=== PATIENT | female | born 1970 | race Caucasian/White ===

== ENCOUNTER 2020-04-01 08:13 | Emergency (ER) | payer MEDICAID ==
[~2020-04-01] VITALS: Ht 154.9 cm; Wt 52.0 kg
[2020-04-01 10:11] VITALS: BP 145/77
== END 2020-04-01 10:13 | disposition home or self-care (01) ==
LOC: ER 08:13
DX: L03.211 Cellulitis of face (principal); R00.2 Palpitations; R06.02 Shortness of breath
CPT/HCPCS: 93005; 99283

== ENCOUNTER 2020-04-01 13:12 | Outpatient (CLI) | payer MEDICAID | END 2020-04-01 23:59 | disposition home or self-care (01) | LOC: CARD DIAG 13:12 | DX: R00.2 Palpitations (principal) | CPT/HCPCS: 93306 ==

== ENCOUNTER 2020-04-11 18:48 | Emergency (ER) | payer MEDICAID ==
[~2020-04-11] VITALS: Ht 154.9 cm; Wt 53.6 kg
[2020-04-11 20:17] VITALS: BP 128/79
== END 2020-04-11 20:18 | disposition home or self-care (01) ==
LOC: ER 18:49
DX: R42 Dizziness and giddiness (principal); G62.9 Polyneuropathy, unspecified
CPT/HCPCS: 93005; 99283

== ENCOUNTER 2020-05-10 07:57 | Outpatient (CLI) | payer MEDICAID | END 2020-05-10 23:59 | disposition home or self-care (01) | LOC: RAD 07:57 | PROVIDERS: ATTEND Family Medicine | DX: R42 Dizziness and giddiness (principal) | CPT/HCPCS: 95816 ==

== ENCOUNTER 2023-05-15 18:40 | Emergency (ER) | payer MEDICAID ==
[~2023-05-15] VITALS: Ht 154.9 cm; Wt 60.0 kg
[2023-05-15] MEDS ORDERED: normal saline 1000ML IV soln IVB ONE ×2 (19:15→19:20)
[2023-05-15 19:18] VITALS: BP 141/82; PULSE 90; RESP 12; TEMP 98.5; O2SAT 100
[2023-05-15] MEDS ORDERED: meclizine 12.5mg tablet PO ONE (19:20)
[2023-05-15] MEDS ORDERED: ondansetron/PF 4mg/2ml inj IV ONE (19:20)
[2023-05-15 19:31] LABS: BASOPHILS % (AUTO) 0.3 % (0-1); EOSINOPHILS # (AUTO) 0.1 X10'3 (0-0.9); EOSINOPHILS % (AUTO) 1.9 % (0-6); HEMATOCRIT 37.2 % (35.0-45.0); HEMOGLOBIN 12.6 g/dl (12.0-16.0); LYMPHOCYTES # (AUTO) 1.1 X10'3 (1.1-4.8); MEAN CORPUSCULAR HEMOGLOBIN 31.4 PG (27.0-31.0); MEAN CORPUSCULAR HGB CONC 33.8 g/dL (33.0-36.5); MEAN CORPUSCULAR VOLUME 92.9 FL (78-98); MEAN PLATELET VOLUME 7.3 FL (7.4-10.4); MONOCYTES # (AUTO) 0.5 X10'3 (0-0.9); MONOCYTES % (AUTO) 9.9 % (2-12); NEUTROPHILS # (AUTO) 3.2 X10'3 (1.8-7.7); NEUTROPHILS % (AUTO) 65.9 % (42-75); PLATELET COUNT 248 X10'3 (140-440); RED BLOOD COUNT 4.01 X10'6 (4.20-5.60); RED CELL DISTRIBUTION WIDTH 14.4 % (11.5-14.5); WHITE BLOOD COUNT 4.8 X10'3 (4.5-11.0)
[2023-05-15 19:46] LABS: ALANINE AMINOTRANSFERASE 18 U/L (12-78); ALBUMIN 3.6 G/DL (3.4-5.0); ALBUMIN/GLOBULIN RATIO 1.2 (1.1-1.5); ALKALINE PHOSPHATASE 45 IU/L (46-116); ANION GAP 10 (8-16); ASPARTATE AMINO TRANSFERASE 10 U/L (10-37); BILIRUBIN,TOTAL 0.2 MG/DL (0.1-1.0); BLOOD UREA NITROGEN 13 MG/DL (7-18); BUN/CREATININE RATIO 18.8 (10.0-20.0); CALCIUM 8.2 MG/DL (8.5-10.1); CHLORIDE 106 MMOL/L (99-107); CREATININE 0.69 MG/DL (0.40-0.90); GLUCOSE 138 MG/DL (70-104); POTASSIUM 3.9 MMOL/L (3.5-5.1); SODIUM 139 MMOL/L (135-145); TOTAL CARBON DIOXIDE 23.2 MMOL/L (24-32); TOTAL PROTEIN 6.6 G/DL (6.4-8.2); eCRCL 71 ML/MIN; eGFR 89 ML/MIN
[2023-05-15 19:53] LABS: PRO BRAIN NATRIURETIC PEPTIDE 44 PG/ML (0-125)
[2023-05-15] MEDS ORDERED: MECL-302 PO (20:35)
[2023-05-15] MEDS ORDERED: ONDA4TAB12 PO (20:35)
== END 2023-05-15 22:18 | disposition home or self-care (01) ==
LOC: ER 18:40
DX: R42 Dizziness and giddiness (principal); H53.8 Other visual disturbances; G43.909 Migraine, unspecified, not intractable, without status migrainosus; I05.0 Rheumatic mitral stenosis; Z79.899 Other long term (current) drug therapy
CPT/HCPCS: 36415; 71045; 80053; 83880; 84484; 85025; 93005; 96360; 96361; 99285; J7030; J8597

== ENCOUNTER 2023-05-23 16:52 | Emergency (ER) | payer MEDICAID ==
[~2023-05-23] VITALS: Ht 154.9 cm; Wt 59.1 kg
[~2023-05-23 16:52] MED LIST: MECL-302 PO; ONDA4TAB12 PO
[2023-05-23 17:04] VITALS: BP 135/87; PULSE 105; RESP 18; TEMP 97.8; O2SAT 98
== END 2023-05-23 18:52 | disposition left against medical advice (07) ==
LOC: ER 16:53
DX: G43.909 Migraine, unspecified, not intractable, without status migrainosus (principal); Z53.21 Procedure and treatment not carried out due to patient leaving prior to being seen by health care provider
CPT/HCPCS: 99281

== ENCOUNTER 2024-06-01 20:41 | Emergency (ER) | payer MEDICAID ==
[~2024-06-01] VITALS: Ht 154.9 cm; Wt 56.8 kg
[~2024-06-01 20:41] MED LIST changes: +ONDA-243 PO; -ONDA4TAB12 PO
[2024-06-01 20:47] VITALS: PULSE 118; TEMP 99
[2024-06-01 22:14] VITALS: RESP 16
[2024-06-01] MEDS: ketorolac trometh 15mg/ml vial 15 MG/ML ML IV ONE (22:27)
[2024-06-01] MEDS: diphenhydrAMINE 50 mg/ml inj IV ONE (22:27)
[2024-06-01] MEDS: metoclopramide 5 mg/ml inj IV ONE (22:28)
[2024-06-01] MEDS: normal saline 1000ml 1,000 ML IV ONE (22:28)
[2024-06-01 23:27] VITALS: BP 107/62; O2SAT 97
== END 2024-06-01 23:30 | disposition home or self-care (01) ==
LOC: ER 20:42
DX: G43.909 Migraine, unspecified, not intractable, without status migrainosus (principal); G62.9 Polyneuropathy, unspecified
CPT/HCPCS: 96361; 96374; 96375; 99284; J1200; J1885; J2765; J7030

== ENCOUNTER 2024-06-20 07:52 | Emergency (ER) | payer MEDICAID ==
[~2024-06-20] VITALS: Ht 157.5 cm; Wt 53.6 kg
[2024-06-20 08:10] VITALS: BP 122/67; PULSE 86; O2SAT 98
[2024-06-20] MEDS: metoclopramide 5 mg/ml inj IM ONE (10:36)
[2024-06-20] MEDS: diphenhydrAMINE 50 mg/ml inj IM ONE (10:36)
[2024-06-20 10:37] VITALS: RESP 16
[2024-06-20] MEDS: HYDROcodone/acetaminophen 10/325mg tab PO ONE (10:37)
[2024-06-20] MEDS ORDERED: MELO-100 PO (11:10)
[2024-06-20 11:34] VITALS: TEMP 97
== END 2024-06-20 11:35 | disposition home or self-care (01) ==
LOC: ER 07:54
DX: G43.909 Migraine, unspecified, not intractable, without status migrainosus (principal); G62.9 Polyneuropathy, unspecified
CPT/HCPCS: 96372; 99284; J1200; J2765

== ENCOUNTER 2024-06-22 12:53 | Emergency (ER) | payer MEDICAID ==
[~2024-06-22] VITALS: Ht 154.9 cm; Wt 52.3 kg
[~2024-06-22 12:53] MED LIST changes: +MELO-100 PO
[2024-06-22 12:59] VITALS: BP 130/77; PULSE 75; O2SAT 100
[2024-06-22] MEDS: orphenadrine citrate 60mg/2ml inj. IM ONE (13:53)
[2024-06-22 13:55] VITALS: RESP 18
[2024-06-22] MEDS: ketorolac trometh 30MG/ML vial 30 MG/ML VIAL IM ONE (13:55)
[2024-06-22] MEDS ORDERED: TIZA4CAP PO (15:11)
[2024-06-22] MEDS ORDERED: NAPR-56 PO (15:11)
[2024-06-22 15:28] VITALS: TEMP 97.8
== END 2024-06-22 15:29 | disposition home or self-care (01) ==
LOC: ER 12:53
DX: S39.012A Strain of muscle, fascia and tendon of lower back, initial encounter (principal); M54.59 Other low back pain; G43.909 Migraine, unspecified, not intractable, without status migrainosus; G62.9 Polyneuropathy, unspecified; Z79.1 Long term (current) use of non-steroidal anti-inflammatories (NSAID); Z79.899 Other long term (current) drug therapy; X58.XXXA Exposure to other specified factors, initial encounter; Y93.89 Activity, other specified; Y92.89 Other specified places as the place of occurrence of the external cause; Y99.8 Other external cause status
CPT/HCPCS: 72128; 72131; 96372; 99285; J1885

== ENCOUNTER 2025-04-25 09:44 | Emergency (ER) | payer MEDICAID ==
[~2025-04-25] VITALS: Ht 154.9 cm; Wt 56.8 kg
[~2025-04-25 09:44] MED LIST changes: +TIZA4CAP PO
[2025-04-25 10:01] VITALS: BP 125/78; PULSE 98; RESP 16; TEMP 97.2; O2SAT 100
[2025-04-25] MEDS ORDERED: CEPH-585 PO (12:10)
--- NOTE | 2025-04-25 12:15 | Physician Documentation ---
History of Present Illness ~ General Chief Complaint: General Stated Complaint: STAPH INFECTION Time Seen by MD: 10:59 OK to notify your PCP?: Yes Primary Medical Doctor: Tracey ramirez Source: patient Mode of Arrival: POV Exam Limitations: no limitations History of Present Illness Initial Comments Presents with raised area of erythema in the right posterior neck which extends up into the scalp and hairline to her forehead as well as across the ear with the pinna very swollen. She reports that this has been going on for the past 2 weeks and she did receive a Botox injection to the same area on 04/09/25. She denies any other ear symptoms. She reports that the rash is tender to palpation. There has been no drainage or vesicles. There is a clear line of demarcation. Medication Reconciliation Allergies: Coded Allergies: No Known Allergies (Unverified , 04/25/25) Scheduled Cephalexin*Monohydrate* (Keflex*), 1 CAP PO Q6H Fluconazole* (Diflucan*), 1 TAB PO ONCE Meloxicam* (Meloxicam*), 1 TAB PO DAILY Tizanidine Hcl (Zanaflex), 1 CAP PO Q8H Scheduled PRN Meclizine HCl (Meclizine HCl), 1 TABLET PO TID PRN PRN for dizziness/vertigo ONDANSETRON ODT 4mg tablet (Ondansetron Odt), 1 TABLET PO Q6H PRN for nausea/vomiting Past Medical History Past Medical History: Migraine, Peripheral Neuropathy, Mitral Valve Stenosis Past Surgical History: noncontributory Drug Use: none Lives In: Home Review of Systems All Other Systems at this time: Reviewed and Negative Physical Exam Physical Exam Vital Signs: RN Vital Signs have been reviewed: Yes, Temperature: 97.2, Source: Temporal, Heart Rate: 98, Respiratory Rate: 16, BP: 125/78, Pulse Oximetry: 100, Weight: 56.800 Oxygen Flow Rate: 0 Pulse Oximetry Reflects: adequate oxygenation Physical Exam General: Alert, no apparent distress. HEENT: PERRL, EOMI, no injection, moist mucous membranes. Bilateral TM clear. External pinna erythema and edema of the right side. Neck: Full range of motion. Respiratory: Lungs clear, no respiratory distress. Chest: No accessory muscle use. Cardiovascular: Regular rate and rhythm, no murmurs. Gastrointestinal: Soft, nontender, nondistended. Bowels sounds present. Extremities: Normal range of motion, no deformity. Neurologic: Oriented x4. Psychiatric: Normal mood and affect. Skin: Erythematous raised skin with edema and induration with a sharp line of demarcation to right forehead, cheek and extends through right ear and over to right lower neck. Tender to palpation. Progress Results/Orders Results/Orders Medications Received in ER Medications (Trade) Dose Ordered Sig/Isacc Route PRN Reason Start Time Stop Time Status Last Admin Dose Admin (Keflex capsule) 500 mg ONCE ONCE PO 04/25/25 12:10 04/25/25 12:11 DC 04/25/25 12:16 500 MG Vital Signs 04/25/25 04/25/25 10:01 12:20 Temp 97.2 Pulse 98 Resp 16 B/P (MAP) 125/78 Pulse Ox 100 O2 Flow Rate 0 Medical Decision Making Additional information obtaine: old records Findings Presents with raised rash to right face and ear. There is no vesicles seen or drainage from the site. I discussed this case with Dr. Watkins who agrees that this is likely erysipelas and not due to a mastoiditis. Placed on Keflex 1st dose given here rest sent to the pharmacy. Discharge instructions as well as follow up instructions given. She reports that Keflex sometimes gives her yeast infection so I did provide her with some Diflucan that she can take if needed. Differential Diagnosis Gangrene, necrotizing fasciitis, perichondritis, shingles, acute mastoiditis Departure Disposition: HOME / SELF CARE / HOMELESS Impression: Primary Impression: Erysipelas of face Condition: Stable Discharge Instructions: Erysipelas Additional Instructions: All antibiotics as prescribed and finish the course. Please notify your Botox provider of this infection. Follow up with her primary care provider next week for a wound check. Return back here for any new or worsening symptoms. Given Diflucan which you can take if a vaginal yeast infection occurs. Referrals: NO PRIMARY CARE PROVIDER (PCP) Prescriptions Fluconazole* (Diflucan*) 150 Mg Tablet 1 TAB PO ONCE for 1 Day, #1 TAB Prov: NAOMY CESAR METAL WIRE TECHNICIAN 04/25/25 Cephalexin*Monohydrate* (Keflex*) 500 Mg Capsule 1 CAP PO Q6H for 10 Days, #40 CAP Prov: NAOMY CESAR 04/25/25 Education Educated: Patient Educated regarding: diagnosis, treatment, prognosis, need for follow up Additional Comment Medical Screen Exam This patient recieved a medical screening examination. After reviewing the individual's medical complaints with presenting symptoms and performing an appropriate physical examination, it was determined that no immediate life- threatening emergency medical condition is present. This individual is also not a women having contractions. I have reviewed this case [id number] with the PA, including physical examination, laboratory and imaging results as appropriate. The patient was eval uated [id number] and I agree with the PA's notes. I agree with the findings, evaluation and disposition. Signature Scribe Signature: . Attestation: Scribed for Naomy Cesar by Naomy Mejia NP . 04/25/25 12:13 Parts of this note were created using [employer] voice recognition software program. While efforts were made to correct any mistakes made by this voice recognition software program, nonsensical phrases may remain in this note. In addition, there may be errors and syntax, grammar, content and spelling. NAOMY CESAR Apr 25, 2025 12:15 JUANY THIBODEAUX MD Apr 25, 2025 18:30
[2025-04-25] MEDS ORDERED: DIF150T PO (12:16)
== END 2025-04-25 12:23 | disposition home or self-care (01) ==
LOC: ER 09:44
DX: A46 Erysipelas (principal); B95.8 Unspecified staphylococcus as the cause of diseases classified elsewhere; I05.0 Rheumatic mitral stenosis; Z88.1 Allergy status to other antibiotic agents; Z88.3 Allergy status to other anti-infective agents; Z88.8 Allergy status to other drugs, medicaments and biological substances
CPT/HCPCS: 99283